=== PATIENT | female | born 1975 | race Caucasian/White ===

== ENCOUNTER 2016-08-26 04:27 | Emergency (ER) ==
[2016-08-26 04:38] VITALS: BP 123/79; TEMP 101.6; BMI 25.2
--- NOTE | 2016-08-26 05:03 | ED.PDOC ---
General ED Provider: Dr. SUNNY GUAMAN Chief Complaint: Urinary Problem Stated Complaint: burning, frequency, urgency, has h/o uti in past Time Seen by Physician: 05:01 Mode of Arrival: Walk-In Information Source: Patient [facility] and Triage Documentation Reviewed and Agree: Yes GI Complaint Exam - Abdominal Pain Complaint/Exam Onset: Gradual Symptoms Are: Still present Timing: Constant Initial Severity: Severe Current Severity: Severe Location of Pain: RLQ, LLQ Radiates To: Reports: Back, Flank Character: Reports: Aching, Throbbing Aggravating: Reports: None Alleviating: Reports: None Associated Signs and Symptoms: Reports: Fever, Back pain, Dysuria, Urinary frequency, Nausea. Denies: Diaphoresis, Cough, Chest pain, Dizziness, Constipation, Blood in stool, Decreased urine output, Decreased appetite, Vaginal bleeding, Vaginal discharge, Vomiting, Diarrhea, Sore throat, Decreased activity Related History: Reports: Similar episode AAA Risk Factors: Reports: None Cardiac Risk Factors: Reports: None Ectopic Risk Factors: Reports: None Ovarian Torsion Risk Factors: Reports: None Surgical Obstruction Risk Factors: Reports: None Related Surgical History: Reports: None Patient Rh Status: Unknown Abdominal Findings: Present: Rebound tenderness, CVA Tenderness. Absent: Pulsatile mass Differential Diagnoses: Renal Colic, Ureteral Stone, UTI Review of Systems - Review Of Systems Constitutional: Reports: Fever, Malaise, Weakness Eyes: Reports: No symptoms Ears, Nose, Mouth, Throat: Reports: No symptoms Respiratory: Reports: No symptoms Cardiac: Reports: No symptoms GI: Reports: Abdominal pain, Vomiting : Reports: Burning, Dysuria, Discharge, Flank pain Musculoskeletal: Reports: No symptoms Skin: Reports: No symptoms Neurological: Reports: No symptoms Endocrine: Reports: No symptoms Hematologic/Lymphatic: Reports: No symptoms All Other Systems: Reviewed and Negative Past Medical History - Past Medical History Previously Healthy: No Endocrine: Reports: None Cardiovascular: Reports: None Respiratory: Reports: None Hematological: Reports: None Gastrointestinal: Reports: None Genitourinary: Reports: UTI, Urosepsis Neuro/Psych: Reports: None Musculoskeletal: Reports: None Cancer: Reports: None Last Menstrual Period: 1997 - Surgical History General Surgical History: Reports: Hysterectomy, - Family History Family History: Reports: Unknown - Social History Smoking Status: Current every day smoker, Heavy tobacco smoker Smoking Cessation Counseling Time: > 10 min Hx Substance Use: No Alcohol Screening: None - Immunizations Tetanus Shot up to Date: Yes Physical Exam - Physical Exam Appearance: Ill-appearing, Thin Ill-appearing: Moderate Eyes: PAMELA, EOMI, Conjunctiva clear ENT: Ears normal, Nose normal, Oropharynx normal Respiratory: Airway patent, Breath sounds clear, Breath sounds equal, Respirations nonlabored Cardiovascular: RRR, Pulses normal, No rub, No murmur GI/: Soft, Tender (left cva) Musculoskeletal: Normal strength, ROM intact, No edema, No calf tenderness Skin: Warm, Dry, Normal color Neurological: Sensation intact, Motor intact, Reflexes intact, Cranial nerves intact, Alert, Oriented Psychiatric: Affect appropriate, Mood appropriate Critical Care Note - Critical Care Note Total Time (mins): 0 Course - Course Hematology/Chemistry: 08/26/16 05:05 08/26/16 05:05 Orders, Labs, Meds: Lab Review 08/26/16 08/26/16 05:05 05:15 WBC 12.26 H RBC 4.14 L Hgb 13.0 Hct 39.4 MCV 95.2 MCH 31.4 H MCHC 33.0 RDW Coeff of [place] 12.3 Plt Count 240 Neutrophils % (Manual) 93.0 H Lymphocytes % (Manual) 5.0 L Monocytes % (Manual) 2.0 Sodium 138 Potassium 3.5 Chloride 103 Carbon Dioxide 26 Anion Gap 12.5 BUN 16 Creatinine 0.91 Estimated GFR (MDRD) 68.00 BUN/Creatinine Ratio 17.58 Glucose 75 Lactic Acid 16.6 Calcium 9.8 Total Bilirubin 0.76 AST 17 ALT 19 Alkaline Phosphatase 49 Total Protein 7.1 Albumin 4.0 Globulin 3.1 Albumin/Globulin Ratio 1.29 Urine Color Yellow Urine Clarity Clear Urine pH 5.5 Ur Specific [place] 1.010 Urine Protein Negative Urine Glucose (UA) Trace Urine Ketones Negative Urine Blood Trace-lysed Urine Nitrite Positive Urine Bilirubin Negative Urine Urobilinogen 0.2 Ur Leukocyte Esterase Negative Urine Microscopic RBC 0-2 Urine Microscopic WBC 5-10 Ur Squamous Epith Cells Not present Urine Bacteria 1+ Urine Test Negative Orders Category Date Time Status BLOOD CULTURE Stat LAB 08/26/16 05:05 Received CBC W/ AUTO DIFF Stat LAB 08/26/16 05:05 Completed COMPREHENSIVE METABOLIC PANEL Stat LAB 08/26/16 05:05 Completed LACTIC ACID Stat LAB 08/26/16 05:05 Completed MANUAL DIFFERENTIAL Stat LAB 08/26/16 05:05 Completed PROCALCITONIN Stat LAB 08/26/16 05:05 Completed URINALYSIS C & S IF INDICATED Stat LAB 08/26/16 05:15 Completed URINE CULTURE Stat LAB 08/26/16 05:39 Received URINE Stat LAB 08/26/16 05:15 Completed Ceftriaxone Sodium [Rocephin] MEDS 08/26/16 05:52 Discontinued 1 gm IM ONCE STA Lidocaine HCl/Pf [Lidocaine 1 % Amp 5 ml (Sutures)] MEDS 08/26/16 05:52 Discontinued 2.1 ml IM ONCE STA Meperidine HCl/Pf [Demerol 25 mg/ml Syringe] MEDS 08/26/16 05:09 Discontinued 25 mg IM ONCE STA Ondansetron HCl/Pf [Zofran 4 mg/2 ml] MEDS 08/26/16 05:09 Discontinued 4 mg IM ONCE STA CT ABDOMEN/PELVIS WO CONTRAST Stat RADS 08/26/16 04:52 Ordered Medications Discontinued Medications Generic Name Dose Route Start Last Admin Trade Name Freq PRN Reason Stop Dose Admin Ceftriaxone Sodium 1 gm 08/26/16 05:52 Rocephin IM 08/26/16 05:53 ONCE STA Lidocaine HCl 2.1 ml 08/26/16 05:52 Lidocaine 1 % Amp 5 Ml (Sutures) IM 08/26/16 05:53 ONCE STA Meperidine HCl 25 mg 08/26/16 05:09 08/26/16 05:23 Demerol 25 Mg/Ml Syringe IM 08/26/16 05:10 25 mg ONCE STA Administration Ondansetron HCl 4 mg 08/26/16 05:09 08/26/16 05:23 Zofran 4 Mg/2 Ml IM 08/26/16 05:10 4 mg ONCE STA Administration Vital Signs: Temp Pulse Resp BP Pulse Ox 08/26/16 04:30 101.6 F H 120 H 20 123/79 99 Departure - Departure Time of Disposition: 05:54 Disposition: HOME SELF-CARE Discharge Problem: Urinary symptoms, Urinary tract infectious disease Urinary tract infection Qualifiers: Urinary tract infection type: acute cystitis Hematuria presence: with hematuria Qualifier Code: (N30.01) Acute cystitis with hematuria Instructions: Urinary Tract Infection in Women (ED) Condition: Stable Pt referred to PMD for follow-up: Yes Additional Instructions: Increase hydration Bactrim ds po bid x 7 days Allergies/Adverse Reactions: Allergies erythromycin base [Erythromycin Base] Adverse Reaction (Verified 08/26/16 04:38) Penicillins Adverse Reaction (Verified 08/26/16 04:38) Home Medications: Ambulatory Orders Progesterone,Micronized [Crinone] 1.125 gm VG DIRECTED 09/12/15 Disposition Discussed With: Patient
[2016-08-26] MEDS ORDERED: ZOFRAN 4 MG/2 ML IM STA (05:09)
[2016-08-26] MEDS ORDERED: DEMEROL 25 MG/ML SYRINGE IM STA (05:09)
[2016-08-26 05:17] LABS: HEMATOCRIT 39.4 % (37.0-47.0); MEAN CORPUSCULAR HEMOGLOBIN 31.4 pg (27.0-31.0); MEAN CORPUSCULAR VOLUME 95.2 fl (81.0-99.0); PLATELET COUNT 240 10^3/uL (140-440); RED BLOOD COUNT 4.14 10^6/ul (4.20-5.40); WHITE BLOOD COUNT 12.26 K/ul (4.6-10.2)
[2016-08-26 05:20] LABS: BILIRUBIN,URINE Negative (NEGATIVE); KETONES,URINE Negative (NEGATIVE); LEUKOCYTE ESTERASE ,URINE Negative (NEGATIVE); NITRITE,URINE Positive (NEGATIVE); PH,URINE 5.5 (5-9); PROTEIN,URINE Negative (NEGATIVE); URINE, BLOOD Trace-lysed (NEGATIVE)
[2016-08-26 05:33] LABS: ANISOCYTOSIS NOT PRESENT (NOT PRESENT)
[2016-08-26 05:35] LABS: URINE PREGNANCY INTERNAL QC INTERNAL QC VALID
[2016-08-26 05:38] LABS: ADD URINE MICROSCOPIC YES
[2016-08-26 05:39] LABS: BACTERIA,URINE 1+ (NOT PRESENT)
[2016-08-26 05:40] LABS: ALBUMIN/GLOBULIN RATIO 1.29; ANION GAP 12.5; BILIRUBIN,TOTAL 0.76 mg/dL (0.00-1.20); BUN/CREATININE RATIO 17.58; CALCIUM 9.8 mg/dL (8.2-10.2); CREATININE 0.91 mg/dL (0.60-1.30); POTASSIUM 3.5 mmol/L (3.5-5.10); TOTAL PROTEIN 7.1 g/dL (6.4-8.2)
[2016-08-26] MEDS ORDERED: ROCEPHIN IM STA (05:52)
[2016-08-26] MEDS ORDERED: LIDOCAINE 1 % AMP 5 ML (SUTURES) IM STA (05:52)
--- NOTE | 2016-08-26 06:29 | CT ---
Exam: CT of the abdomen and pelvis without contrast History: Flank pain Technique: [address] of the abdomen and pelvis without intravascular contrast FINDINGS: The lung bases are clear. The liver, pancreas, spleen and adrenal glands appear normal. There is no hydronephrosis or hydroureter. Duplicated collecting system on the right and fluid in the mid ureter level. No urinary calculus is seen. Vascular calcification near the right mid urete r. The appendix is not seen. Normal caliber bowel loops. No inflammation of the mesentery or retrop eritoneum. Vascular structures appear normal by noncontrast CT. Prior hysterectomy. Normal urinary bladder. No inflammation of the pelvic fat. No acute findings of the skeleton. Impression: 1. No inflammatory process, bowel or urinary obstruction is seen. 2. Moderate right and transverse colonic stool retention. Correlate for symptoms.
== END 2016-08-26 06:43 | disposition home or self-care (01) ==
LOC: ED 04:27
DX: N30.01 Acute cystitis with hematuria (principal); F17.210 Nicotine dependence, cigarettes, uncomplicated
CPT/HCPCS: 36415; 80053; 81001; 81025; 83605; 84145; 85007; 85025; 87040; 87086; 87186; 96372; 99283

== ENCOUNTER 2016-11-19 09:38 | Outpatient (CLI) ==
[2016-11-19 09:51] LABS: ADD URINE MICROSCOPIC NO; BILIRUBIN,URINE Negative (NEGATIVE); KETONES,URINE Negative (NEGATIVE); LEUKOCYTE ESTERASE ,URINE Negative (NEGATIVE); NITRITE,URINE Negative (NEGATIVE); PROTEIN,URINE Negative (NEGATIVE); URINE, BLOOD Negative (NEGATIVE)
== END 2016-11-19 09:39 | disposition home or self-care (01) ==
LOC: LAB 09:38
PROVIDERS: ATTEND General Practice
DX: R30.0 Dysuria (principal); R10.819 Abdominal tenderness, unspecified site
CPT/HCPCS: 81001; 82272

== ENCOUNTER 2016-11-19 16:17 | Outpatient (CLI) ==
[2016-11-19 17:00] LABS: OCCULT BLOOD INTERNAL QC 1 INTERNAL QC VALID; OCCULT BLOOD SAMPLE 1 NEGATIVE (NEGATIVE)
== END 2016-11-19 16:18 | disposition home or self-care (01) ==
LOC: LAB 16:17
PROVIDERS: ATTEND General Practice
DX: R10.819 Abdominal tenderness, unspecified site (principal)
CPT/HCPCS: 82272

== ENCOUNTER 2017-06-14 10:29 | Outpatient (CLI) ==
--- NOTE | 2017-06-14 11:48 | MAMMO ---
EXAM: Digital diagnostic mammogram with tomosynthesis. Diagnostic bilateral breast ultrasound. HISTORY: Unspecified lump in right breast COMPARISON: 03/27/2016 FINDINGS: Mammogram: Digital MLO and CC views of the right and left breast were performed. Tomosynthesis was performed. Computer aided detection was utilized. There are scattered fibroglandular densities. Stab le asymmetry left inferior breast.There is no evidence for mass, asymmetry, distortion, or suspicious calcifications in the right breast. Ultrasound: Ultrasound of the right breast was performed in the region of palpable abnormality as directed by the patient, at the 12 o'clock position and 3 cm from the nipple. In this region, there is a cyst with minimal internal echoes measuring 0.2 x 0.3 x 0.4 cm. Ultrasound of the left breast was performed in the region of previously seen probably benign left yajaira ast cyst, and correlating to the finding on mammogram. At the 6 o'clock position 4 cm from the nippl e, there is a mildly complicated cyst with thin septation and mild internal echoes measuring 0.3 x 0. 5 x 0.5 cm. Previously seen cyst at the 8 o'clock position is not visualized. IMPRESSION: 1. Mildly complicated right breast cyst. This finding is probably benign. This correlates to the re gion of clinical concern. 2. Mildly complicated left breast cyst. This finding is probably benign. 3. Bilateral ultrasound recommended in 6 months for reevaluation of findings #1 and #2. BIRADS category 3, probably benign
== END 2017-06-14 10:30 | disposition home or self-care (01) ==
LOC: RAD 10:29
PROVIDERS: ATTEND General Practice
DX: N63.0 Unspecified lump in unspecified breast (principal); N64.4 Mastodynia

== ENCOUNTER 2017-08-06 07:38 | Day surgery (SDC) ==
[2017-08-06] MEDS ORDERED: LIDOCAINE 1%-EPI 1:100,000 20 ML MDV INJ STA (09:29)
[2017-08-06] MEDS ORDERED: POLYSPORIN 0.9 GM PACKET TP STA (09:45)
[2017-08-06 14:52] VITALS: BP 110/66; TEMP 98.2
--- NOTE | 2017-08-11 11:32 | OP ---
DATE OF PROCEDURE: 08/06/2017 INDICATIONS: 41-year-old female is scheduled for removal of a recurrent infected cyst on the right buttock. The patient decided removal. There is no infection at the present time. There is a palpable firmness and this was marked with an indelible marker prior to surgery for localization. The patient, again was advised about the possibility of infection and also delayed healing if that happens. PREOPERATIVE DIAGNOSIS: REOCCURRING INFECTED CYST, RIGHT BUTTOCK POSTOPERATIVE DIAGNOSIS: REOCCURRING INFECTED CYST, RIGHT BUTTOCK OPERATION: ELLIPTICAL EXCISION DESCRIPTION OF PROCEDURE: The patient in left lateral decubitus position was then prepped and draped for surgery. A transverse elliptical incision was made after the area was anesthetized. This was carried directly into the subcutaneous tissue. The dissection was carried until it was completely removed. Before complete removal , the firm tissue was incised to make sure that the area in question was excised completely. The bleeders were electrocauterized. The edges were then approximated with 4-0 Vicryl and 5-0 Prolene. The patient tolerated the procedure well and Neosporin ointment was applied and bandaid. The patient was instructed that she can take a shower, remove the bandaid and replace it with another bandaid. The patient is to see me in one week or before if there is any problem such as swelling, redness or drainage. ARRON
== END 2017-08-06 10:00 | disposition home or self-care (01) ==
LOC: SURG 07:38
PROVIDERS: ATTEND General Practice
DX: L72.8 Other follicular cysts of the skin and subcutaneous tissue (principal); L90.5 Scar conditions and fibrosis of skin
CPT/HCPCS: 11423

== ENCOUNTER 2017-09-16 10:21 | Outpatient (CLI) | END 2017-09-16 10:22 | disposition home or self-care (01) | LOC: FCC-LAB 10:21 | PROVIDERS: ATTEND General Practice | DX: E53.8 Deficiency of other specified B group vitamins (principal) | CPT/HCPCS: 36415; 83090 ==

== ENCOUNTER 2017-09-24 08:23 | Day surgery (SDC) ==
[2017-09-24] MEDS ORDERED: LIDOCAINE 1%-EPI 1:100,000 20 ML MDV INJ STA (09:06)
[2017-09-24] MEDS ORDERED: NEOSPORIN OINT 0.9 GM PACKET TP STA (09:39)
[2017-09-27] MEDS ORDERED: NEOSPORIN OINT 0.9 GM PACKET TP STA (09:03)
[2017-09-27] MEDS ORDERED: LIDOCAINE 1%-EPI 1:100,000 20 ML MDV INJ STA (09:04)
[2017-09-27 10:25] VITALS: BP 110/65; TEMP 98.6
--- NOTE | 2017-09-29 11:06 | OP ---
DATE OF PROCEDURE: 09/24/17 INDICATIONS: 42-year-old female is brought to surgery for excision of recurrent infected cyst, right buttock. This patient had been given an antibiotic because of the recurrent infection. The area has reduced in size. The patient was advised excision since the problem has returned several times. The patient was advised about the possibility of infection post surgery. If it does it might require several weeks before complete healing. It will also probably produce more scar formation. The patient showed good understanding. The procedure would be done under local anesthesia. This patient also was advised that she could not sit on the right buttock at all for a few weeks. PREOPERATIVE DIAGNOSIS: INFECTED CYST, RIGHT BUTTOCK WITH RECURRENT INFECTION POSTOPERATIVE DIAGNOSIS: INFECTED CYST, RIGHT BUTTOCK WITH RECURRENT INFECTION OPERATION: EXCISION OF ABSCESS OF RIGHT BUTTOCK DESCRIPTION OF PROCEDURE: With the patient in the left lateral decubitus position was prepped and draped for surgery. The area was then anesthetized with 1% Xylocaine and transverse incision along the longest direction of the cyst was made and carried through subcutaneous tissue. Dissection was carried until the area was completely excised. After removal, the area was irrigated with Betadine followed by Saline. There was some thickening in the superior margin of the incision and this was excised further. The area again was irrigated with Betadine followed by Saline and the bleeders were desiccated. Subcutaneous tissue was approximated with 4-0 Vicryl and skin with 4-0 Ethilon. The patient tolerated the procedure well. Neosporin ointment placed and dressing applied. This patient was advised to see Wednesday or before if there is any problem. ARRON
== END 2017-09-24 10:15 | disposition home or self-care (01) ==
LOC: SURG 08:23
PROVIDERS: ATTEND General Practice
DX: L02.31 Cutaneous abscess of buttock (principal)
CPT/HCPCS: 11402

== ENCOUNTER 2017-11-08 13:10 | Outpatient (CLI) | END 2017-11-08 13:11 | disposition home or self-care (01) | LOC: FCC-LAB 13:10 | PROVIDERS: ATTEND General Practice | DX: M06.9 Rheumatoid arthritis, unspecified (principal); F90.9 Attention-deficit hyperactivity disorder, unspecified type; E28.319 Asymptomatic premature menopause; Z79.899 Other long term (current) drug therapy | CPT/HCPCS: 36415; 80053; 80061; 85025 ==

== ENCOUNTER 2018-07-11 14:29 | Outpatient (CLI) ==
[2018-05-07 08:33] VITALS: BMI 26.6
== END 2018-07-11 14:30 | disposition home or self-care (01) ==
LOC: RHC-LAB 14:29
PROVIDERS: ATTEND General Practice
DX: M25.541 Pain in joints of right hand (principal); M25.542 Pain in joints of left hand; M79.89 Other specified soft tissue disorders

== ENCOUNTER 2018-07-12 15:18 | Outpatient (CLI) ==
[2018-05-07 08:33] VITALS: BMI 26.6
== END 2018-07-12 15:19 | disposition home or self-care (01) ==
LOC: RHC-LAB 15:18
PROVIDERS: ATTEND Nurse Practitioner Family
DX: M25.541 Pain in joints of right hand (principal); M25.542 Pain in joints of left hand; M79.89 Other specified soft tissue disorders
CPT/HCPCS: 36415; 85651; 86140

== ENCOUNTER 2018-07-25 16:16 | Outpatient (CLI) ==
[2018-05-07 08:33] VITALS: BMI 26.6
--- NOTE | 2018-07-25 16:48 | DI ---
EXAM: Five views of the lumbar spine. History: Lower back pain. Comparison: Lumbar spine radiograph 05/01/2013 Findings: Cholecystectomy clips. No acute fracture or subluxation of the lumbar spine. Mild multil evel disc space narrowing, similar to the prior study. Scattered colonic stool. Impression: No acute osseous abnormality of the lumbar spine and stable mild degenerative disc disea se.
== END 2018-07-25 16:17 | disposition home or self-care (01) ==
LOC: RAD 16:16
PROVIDERS: ATTEND General Practice
DX: M54.5 Low back pain (principal); M79.18 Myalgia, other site